=== PATIENT | female | born 1965 | race Caucasian/White ===

== ENCOUNTER → 2019-03-28 07:45 | Outpatient (CLI) | payer BC ==
--- NOTE | ~2019-03-28 | ST ---
PATIENT:CATALINA SNELL MEDICAL RECORD: [id number] SEX: F LOCATION:[facility] ORDER #: ADMISSION DATE: 03/28/19 AGE OF PATIENT: 53 REFERRING PHYSICIAN: INTERPRETING PHYSICIAN: AMADOU BENSON MD DATE OF SERVICE: 03/28/2019 PROCEDURE: Nuclear stress test. INDICATION: Angina, hypertension, and hyperlipidemia. He was exercised on standard Lexiscan protocol with 33 mCi of sestamibi injected at peak stress, 11 mCi used previously for rest images. FINDINGS: Gated SPECT reveals preserved ejection fraction at 81% with good wall motion and thickening and brightening throughout all segments. SPECT imaging Cardiolite was used as myocardial fusion agent. There is homogeneous uptake throughout all segments at rest and stress with no evidence of inducible ischemia or previous infarction. OVERALL IMPRESSION: 1. This is a normal nuclear stress test with no evidence of inducible ischemia or previous infarction. 2. Gated SPECT reveals a preserved ejection fraction at 81%. In this patient with ongoing symptomatology, the current scan does not suggest the presence of hemodynamically significant coronary artery disease. Evaluate noncardiac etiology of chest pain. TRANSINT:[id number] Voice Confirmation ID: [id number] DOCUMENT ID: [id number] AMADOU BENSON MD CC: LUCIE FOSS JR SECURITY ASSISTANT [id number] DICTATION DATE: 03/28/19 1702 DEVELOPER ANALYST: 03/29/19 0739 [facility] CLI 03/28/19 [id number] [place] [address]
== END | disposition home or self-care (01) ==
LOC: D.HCCARDIO 03-17 12:30
PROVIDERS: ATTEND Internal Medicine Interventional Cardiology
DX: I20.9 Angina pectoris, unspecified (principal)